=== PATIENT | female | born 1955 | race Caucasian/White ===

== ENCOUNTER 2022-05-12 08:08 | Observation (INO) | payer MEDICARE, OTHER ==
[~2022-05-12] VITALS: Ht 172.7 cm; Wt 110.2 kg
[~2022-05-12 08:08] MED LIST: BENICAR20 MG PO; CELECOXIB 200 MG CAP ONE; DEXAMETHASONE SOD PHOS 10 MG/1 ML VIAL ONE; GABAPENTIN 300 MG CAP ONE; MELOXICAM7.5 MG PO; POTASSIUM PO; ROPIVACAINE 246.25 MG, EPINEPHRINE HCL 1:1000 1ML 0.5 MG, CLONIDINE HCL 0.08 MG, KETORO... INJ ONE; SINGULAIR10 MG PO; SODIUM CHLORIDE 0.9% 500ML 500 ML ONE; TOPAMAX100 MG PO; TRANEXAMIC ACID 20 ML ONE; TYLENOL #3 PO; VIT B1 PO; VIT B12 PO; VIT D PO; Vancomycin IV 1,000 MG ONE; tylenol arthritis PO
[2022-05-12] MEDS ORDERED: DIPHENHYDRAMINE HCL INJ 50 MG/ML VIAL IV PRN (08:45)
[2022-05-12] MEDS ORDERED: HYDROCODONE/APAP 7.5MG-325MG 1 EA TAB PO PRN (08:45)
[2022-05-12] MEDS ORDERED: HYDROCODONE/APAP 5MG-325MG TAB PO PRN (08:45)
[2022-05-12] MEDS ORDERED: ZOLPIDEM TARTRATE 5 MG TAB PO PRN (08:45)
[2022-05-12] MEDS ORDERED: DOCUSATE SODIUM 100 MG CAP PO PRN (08:45)
[2022-05-12] MEDS ORDERED: KETOROLAC TROMETHAMINE 30 MG/ML VIAL IV PRN (08:45)
[2022-05-12] MEDS ORDERED: ONDANSETRON HCL INJ 2MG/ML 2ML 2 MG/ML VIAL IV PRN (08:45)
[2022-05-12] MEDS ORDERED: SODIUM CHLORIDE 0.9% 1000ML 1,000 ML IV SCH (08:45)
[2022-05-12] MEDS ORDERED: ACETAMINOPHEN 650 MG SUPP PR PRN (08:45)
[2022-05-12] MEDS: ASPIRIN 325 MG TAB PO SCH ×2 (09:00→16:52)
[2022-05-12] MEDS: CELECOXIB 100 MG CAP PO SCH ×2 (09:00→16:52)
[2022-05-12] MEDS ORDERED: HYDROMORPHONE 1MG/1ML INJ ONE (09:07)
[2022-05-12] MEDS ORDERED: Morphine 10mg syringe 10 MG/ML INJ ONE (09:34)
[2022-05-12 10:00] VITALS: BP 129/70
[2022-05-12 10:29] VITALS: BP 129/70
[2022-05-12] MEDS ORDERED: PROPOFOL IV EMULSION 10 MG/ML 20 ML VIAL ONE (10:58)
[2022-05-12] MEDS ORDERED: GLYCOPYRROLATE INJ 0.2 MG/ML VIAL ONE (10:58)
[2022-05-12] MEDS ORDERED: POVIDONE IODINE 0.05% 0.05 % ML PO ONE (10:58)
[2022-05-12] MEDS ORDERED: SEVOFLURANE INHAL SOLN 250 ML PEN BTL ONE (10:58)
[2022-05-12] MEDS ORDERED: LIDOCAINE HCL 2% LOCAL INJ 5 ML SDV VIAL INJ ONE (10:58)
[2022-05-12] MEDS ORDERED: ONDANSETRON HCL INJ 2MG/ML 2ML 2 MG/ML VIAL ONE (10:58)
[2022-05-12] MEDS ORDERED: ACETAMINOPHEN 1000 MG/100 ML IV PRN (12:00)
[2022-05-12] MEDS ORDERED: ROPIVACAINE 0.5% 5 MG/ML 30 ML SDV ONE (12:21)
[2022-05-12 12:24] VITALS: BP 129/90
[2022-05-12] MEDS ORDERED: MIDAZOLAM HCL 2 MG/2 ML VIAL ONE (12:27)
[2022-05-12] MEDS ORDERED: FENTANYL CITRATE/PF 100MCG/2 ML INJ ONE (12:27)
[2022-05-12 16:55] VITALS: BP 114/75
== END 2022-05-12 18:56 | disposition home or self-care (01) ==
LOC: OR 08:08 → PACU V 08:42 → MED/SURG 09:47
PROVIDERS: ADMIT Specialist; ATTEND Specialist
DX: M17.11 Unilateral primary osteoarthritis, right knee (principal); Z01.818 Encounter for other preprocedural examination; Z20.822 Contact with and (suspected) exposure to COVID-19; I10 Essential (primary) hypertension
CPT/HCPCS: 0223U; 27447; 36415; 71046; 73560; 86850; 86900; 86920; 94799; 97110; 97116 ×2; 97161; 97530; C1713 ×2; C1776 ×3; G0378; J0171; J0690; J1100; J1170; J1885; J2001; J2250; J2270; J2405; J2704; J2795; J3010; J3370; J7030; J7040

== ENCOUNTER 2022-06-19 10:04 | Outpatient (RCR) | payer MEDICARE, OTHER ==
[~2022-06-19 10:04] MED LIST changes: -CELECOXIB 200 MG CAP ONE; -DEXAMETHASONE SOD PHOS 10 MG/1 ML VIAL ONE; -GABAPENTIN 300 MG CAP ONE; -ROPIVACAINE 246.25 MG, EPINEPHRINE HCL 1:1000 1ML 0.5 MG, CLONIDINE HCL 0.08 MG, KETORO... INJ ONE; -SODIUM CHLORIDE 0.9% 500ML 500 ML ONE; -TRANEXAMIC ACID 20 ML ONE; -Vancomycin IV 1,000 MG ONE
== END 2022-06-24 ==
LOC: PT 10:04
PROVIDERS: ATTEND Physician Assistant
DX: Z47.1 Aftercare following joint replacement surgery (principal); Z96.651 Presence of right artificial knee joint; M62.81 Muscle weakness (generalized); M25.561 Pain in right knee; M25.661 Stiffness of right knee, not elsewhere classified; R26.2 Difficulty in walking, not elsewhere classified

== ENCOUNTER → 2022-07-24 | Outpatient (RCR) | payer MEDICARE, OTHER | LOC: PT 06-26 07:08 | PROVIDERS: ATTEND Physician Assistant | DX: Z47.1 Aftercare following joint replacement surgery (principal); Z96.651 Presence of right artificial knee joint; M62.81 Muscle weakness (generalized); M25.561 Pain in right knee; M25.661 Stiffness of right knee, not elsewhere classified; R26.2 Difficulty in walking, not elsewhere classified ==

== ENCOUNTER 2022-08-21 07:00 | Outpatient (RCR) | payer MEDICARE, OTHER | END 2022-08-24 | LOC: PT 07:00 | PROVIDERS: ATTEND Physician Assistant | DX: Z47.1 Aftercare following joint replacement surgery (principal); Z96.651 Presence of right artificial knee joint; M62.81 Muscle weakness (generalized); M25.561 Pain in right knee; M25.661 Stiffness of right knee, not elsewhere classified; R26.2 Difficulty in walking, not elsewhere classified ==

== ENCOUNTER 2022-08-31 08:00 | Outpatient (RCR) | payer MEDICARE, OTHER | END 2022-09-23 | LOC: PT 08:00 | PROVIDERS: ATTEND Physician Assistant | DX: Z47.1 Aftercare following joint replacement surgery (principal); Z96.651 Presence of right artificial knee joint; M62.81 Muscle weakness (generalized); M25.561 Pain in right knee; M25.661 Stiffness of right knee, not elsewhere classified; R26.2 Difficulty in walking, not elsewhere classified ==